=== PATIENT | female | born 1950 ===

== ENCOUNTER 2016-08-21 03:49 | Emergency (ER) | payer OTHER ==
[~2016-08-21] VITALS: Ht 170.2 cm; Wt 65.4 kg
[2016-08-21 03:55] VITALS: BP 140/66
== END 2016-08-21 04:44 | disposition left against medical advice (07) ==
LOC: EDBD 03:49 → EDUNIT# 03:49 → ER 03:49
DX: R51 Headache (principal); M25.519 Pain in unspecified shoulder; M54.9 Dorsalgia, unspecified; Z53.21 Procedure and treatment not carried out due to patient leaving prior to being seen by health care provider; X58.XXXA Exposure to other specified factors, initial encounter; Y93.89 Activity, other specified; Y99.8 Other external cause status; Y92.89 Other specified places as the place of occurrence of the external cause